=== PATIENT | male | born 1940 | race Caucasian/White ===

== ENCOUNTER 2018-09-05 16:41 | Observation (INO) | payer OTHER ==
--- NOTE | 2018-09-05 16:51 | EDPHY ---
H & P Stated Complaint: This morning was forgetful, no other s/s, denies confusion now. Time Seen by Provider: 09/05/18 16:51 HPI/ROS: HPI CHIEF COMPLAINT: Episode of forgetfulness and trouble with memory. HISTORY OF PRESENT ILLNESS: 77-year-old male, presents emergency room by private vehicle with his , history of hypertension, presents for a period of forgetfulness and confusion that last approximately 2 hr today. He made an appointment with his primary care doctor earlier in the day for some left abdominal groin discomfort. However his reports that the appointment was around 2:00 pm. And when she arrived home he had no recollection that he made this appointment and was unsure of the primary care doctor he was supposed to see despite being very familiar with him. He appeared confused. Trouble with his memory. This is since resolved. He now arrives to the emergency room in no acute distress resting comfortably. The patient denies any focal weakness numbness or tingling, denies headache, denies chest pain or shortness of breath , denies change in medications. No recent illness. Normal activity today. The at bedside reports that he is back to baseline. Had a 2 hr episode of confusion and forgetfulness. No other symptoms. Past Medical History: Denies significant medical history except for hypertension Past Surgical History: No recent surgical history Social History: The retired professor. Denies drugs alcohol tobacco. Family History: Noncontributory ROS REVIEW OF SYSTEMS: 10 Systems were reviewed and negative with the exception of the elements mentioned in the history of present illness. Exam Constitutional nontoxic appears well, triage nursing summary reviewed, vital signs reviewed, awake/alert. Eyes normal conjunctivae and sclera, EOMI, PERRLA. HENT normal inspection, atraumatic, moist mucus membranes, no epistaxis, neck supple/ no meningismus, no raccoon eyes. Respiratory clear to auscultation bilaterally, normal breath sounds, no respiratory distress, no wheezing. Cardiovascular rate normal, regular rhythm, no murmur, no edema, distal pulses normal. Gastrointestinal soft, non-tender, no rebound, no guarding, normal bowel sounds, no distension, no pulsatile mass. Genitourinary no CVA tenderness. Musculoskeletal no midline vertebral tenderness, full range of motion, no calf swelling, no tenderness of extremities, no meningismus, good pulses, neurovascularly intact. Skin pink, warm, & dry, no rash, skin atraumatic. Neurologic no focal neuro deficit on exam, and alert and oriented, awake, alert and oriented x 3, AAOx3, moves all 4 extremities equally, motor intact, sensory intact, CN II-XII intact, normal cerebellar, normal vision, normal speech. Psychiatric normal mood/affect. Heme/Lymph/Immune no lymphadenopathy. 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 Re-evaluate. Re-evaluation: MRI brain without contrast negative for bleed or stroke. Global atrophy noted. 1922: I did go and discuss the results the patient is resting comfortably. Neurological exam is unremarkable. at bedside agrees at his baseline. Discussed this case in detail with Dr. Marks, recommends obs overnight, U/S Carotids. Discussed the case with Dr. Arreola, who agrees to admit. Updated , and patient. Agrees to be admitted overnight. Source: Patient - Personal History Current Tetanus/Diphtheria Vaccine: Unsure - Medical/Surgical History Hx Asthma: No Hx Chronic Respiratory Disease: No Hx Diabetes: No Hx Cardiac Disease: No Hx Renal Disease: No Hx Cirrhosis: No Hx Alcoholism: No Hx HIV/AIDS: No Hx Splenectomy or Spleen Trauma: No Other PMH: HTN, - Social History Smoking Status: Never smoked Constitutional: Initial Vital Signs Temperature (C) 36.8 C 09/05/18 16:44 Heart Rate 86 09/05/18 16:44 Respiratory Rate 16 09/05/18 16:44 Blood Pressure 164/103 H 09/05/18 16:44 O2 Sat (%) 97 09/05/18 16:44 O2 Delivery Mode Room Air Allergies/Adverse Reactions: No Known Allergies Allergy (Unverified 09/05/18 16:44) Home Medications: Medication Instructions Recorded Lisinopril [Zestril 20 mg (*)] 20 mg PO DAILY 09/05/18 Aspirin [Aspirin 81mg (*)] 81 mg PO DAILY #30 tab.chew 09/06/18 Medical Decision Making - Data Points Laboratory Results: Laboratory Results 09/05/18 17:10 09/05/18 17:10 Medications Given: Discontinued Medications Aspirin (Aspirin) 81 mg PO DAILY [facility] Stop: 03/05/19 08:59 Last Admin: 09/06/18 09:29 Dose: 81 mg Lisinopril (Zestril) 20 mg PO DAILY [facility] Stop: 03/05/19 08:59 Last Admin: 09/06/18 09:30 Dose: 20 mg Departure - Departure Disposition: [facility] Inpatient Acute Clinical Impression: TIA (transient ischemic attack) Condition: Fair
[2018-09-05 17:41] LABS: PLATELET COUNT 205 10^3/uL (150-400)
[2018-09-05] MEDS ORDERED: ONDANSETRON 4 MG/2 ML VIAL IVP PRN (21:27)
[2018-09-05] MEDS ORDERED: ONDANSETRON DISINTEGRATING 4 MG TAB PO PRN (21:27)
[2018-09-05] MEDS ORDERED: oxyCODONE IR 5 MG TAB PO PRN (21:27)
[2018-09-05] MEDS ORDERED: HYDROCODONE/APAP 5/325 TAB PO PRN (21:27)
[2018-09-05] MEDS ORDERED: ACETAMINOPHEN 325 MG TAB PO PRN (21:27)
[2018-09-05] MEDS ORDERED: IOPAMIDOL (ISOVUE 370) 100 ML BTL IV ONE (21:45)
--- NOTE | 2018-09-05 21:47 | PDGENHP ---
History and Physical - Chief Complaint confusion - History of Present Illness Patient is a 77 year old M with PMH of prostate cancer in 2000 presenting with a brief episode of confusion characterized by memory loss. Patient himself does not recall the episode but per 's report to ER doctor, patient had made an appointment to see his PCP today and when she got home he had failed to go, did not remember making the appointment and did not even remember his doctors name. He has never had similar issues in the past. The episode did not recur but he still has difficulty recalling what happened during that time period. He denies other associated sxs such as visual changes, weakness, numbness, fever, sob, chest pain. He states he currently feels completely normal though he is a bit worried about the event. History Information - Allergies/Home Medication List Allergies/Adverse Reactions: No Known Allergies Allergy (Unverified 09/05/18 16:44) Home Medications: Lisinopril [Zestril 20 mg (*)] 20 mg PO DAILY 09/05/18 [Last Taken 09/05/18] I have personally reviewed and updated: family history, medical history, social history, surgical history - Past Medical History cancer (prostate--treated with radiation in 2000), hypertension - Surgical History Reports: no pertinent surgical hx - Family History Positive for: non-pertinent - Social History Smoking Status: Never smoked Alcohol Use: Rarely Drug Use: None Additional social history: , very active--walks dog for up to 5 hours per day, works out in gym Review of Systems Review of Systems: ROS: 10pt was reviewed & negative except for what was stated in HPI & below Physical Exam Physical Exam: Temp Pulse Resp BP Pulse Ox 36.7 C 69 16 177/95 H 94 09/05/18 20:30 09/05/18 20:30 09/05/18 20:30 09/05/18 20:30 09/05/18 20:30 Constitutional: no apparent distress, appears nourished Eyes: PERRL, anicteric sclera Ears, Nose, Mouth, Throat: moist mucous membranes, hearing normal Cardiovascular: regular rate and rhythym, no murmur, rub, or gallop, No edema Respiratory: no respiratory distress, no rales or rhonchi, clear to auscultation Gastrointestinal: normoactive bowel sounds, soft, non-tender abdomen Genitourinary: no bladder tenderness Skin: warm, normal color Musculoskeletal: full muscle strength, no muscle tenderness Neurologic: AAOx3, CN II-XII Intact Psychiatric: interacting appropriately, not anxious, not encephalopathic Lab Data & Imaging Review 09/05/18 17:10 09/05/18 17:10 WBC 4.10 10^3/uL (3.80-9.50) 09/05/18 17:10 RBC 4.50 10^6/uL (4.40-6.38) 09/05/18 17:10 Hgb 14.1 g/dL (13.7-17.5) 09/05/18 17:10 Hct 41.8 % (40.0-51.0) 09/05/18 17:10 MCV 92.9 fL (81.5-99.8) 09/05/18 17:10 MCH 31.3 pg (27.9-34.1) 09/05/18 17:10 MCHC 33.7 g/dL (32.4-36.7) 09/05/18 17:10 RDW 12.5 % (11.5-15.2) 09/05/18 17:10 Plt Count 205 10^3/uL (150-400) 09/05/18 17:10 MPV 9.2 fL (8.7-11.7) 09/05/18 17:10 Neut % (Auto) 59.7 % (39.3-74.2) 09/05/18 17:10 Lymph % (Auto) 27.6 % (15.0-45.0) 09/05/18 17:10 [place] % (Auto) 11.2 % (4.5-13.0) 09/05/18 17:10 Eos % (Auto) 0.5 % (0.6-7.6) L 09/05/18 17:10 Baso % (Auto) 1.0 % (0.3-1.7) 09/05/18 17:10 Nucleat RBC Rel Count 0.0 % (0.0-0.2) 09/05/18 17:10 Absolute Neuts (auto) 2.45 10^3/uL (1.70-6.50) 09/05/18 17:10 Absolute Lymphs (auto) 1.13 10^3/uL (1.00-3.00) 09/05/18 17:10 Absolute Monos (auto) 0.46 10^3/uL (0.30-0.80) 09/05/18 17:10 Absolute Eos (auto) 0.02 10^3/uL (0.03-0.40) L 09/05/18 17:10 Absolute Basos (auto) 0.04 10^3/uL (0.02-0.10) 09/05/18 17:10 Absolute Nucleated RBC 0.00 10^3/uL (0-0.01) 09/05/18 17:10 Immature Gran % 0.0 % (0.0-1.1) 09/05/18 17:10 Immature Gran # 0.00 10^3/uL (0.00-0.10) 09/05/18 17:10 Sodium 139 mEq/L (135-145) 09/05/18 17:10 Potassium 4.2 mEq/L (3.3-5.0) 09/05/18 17:10 Chloride 103 mEq/L (97-110) 09/05/18 17:10 Carbon Dioxide 27 mEq/l (22-31) 09/05/18 17:10 Anion Gap 9 mEq/L (6-14) 09/05/18 17:10 BUN 22 mg/dL (7-23) 09/05/18 17:10 Creatinine 1.0 mg/dL (0.7-1.3) 09/05/18 17:10 Estimated GFR > 60 09/05/18 17:10 Glucose 111 mg/dL (70-100) H 09/05/18 17:10 Calcium 9.1 mg/dL (8.5-10.4) 09/05/18 17:10 Urine Color YELLOW 09/05/18 16:55 Urine Appearance HAZY 09/05/18 16:55 Urine pH 7.0 (5.0-7.5) 09/05/18 16:55 Ur Specific Orange 1.024 (1.002-1.030) 09/05/18 16:55 Urine Protein NEGATIVE (NEGATIVE) 09/05/18 16:55 Urine Ketones NEGATIVE (NEGATIVE) 09/05/18 16:55 Urine Blood NEGATIVE (NEGATIVE) 09/05/18 16:55 Urine Nitrate NEGATIVE (NEGATIVE) 09/05/18 16:55 Urine Bilirubin NEGATIVE (NEGATIVE) 09/05/18 16:55 Urine Urobilinogen 2.0 EU (0.2-1.0) H 09/05/18 16:55 Ur Leukocyte Esterase NEGATIVE (NEGATIVE) 09/05/18 16:55 Urine Glucose NEGATIVE (NEGATIVE) 09/05/18 16:55 Visualized and Interpreted imaging results: Yes Interpretation: Brain MRI: no cva or mass Assessment & Plan Assessment: TIA (transient ischemic attack) (Acute) 77 yo M with remote hx of prostate cancer presenting with transient memory issues # TIA versus transient global amnesia: sxs have now completely resolved though recollection of the event still absent. Brain MRI negative. Neurology consulted by ER doc and recommended overnight observation and further imaging of head/ neck. CTA head/neck ordered, echo in am. Started on asa. Neuro to evaluate in am. Lipid panel and A1c for further risk stratification. # hypertension: currently elevated, will continue home lisinopril with addition of prn hydralazine # hyperglycemia: A1c ordered as above # observation status Patient new to my care. Old records reviewed and summarized as above. Care plan reviewed with ER doctor as above.
[2018-09-05] MEDS ORDERED: hydrALAZINE 20 MG/ML VIAL IVP PRN (21:51)
[2018-09-06] MEDS ORDERED: LISINOPRIL 20 MG TAB PO SCH (09:00)
[2018-09-06] MEDS ORDERED: ASPIRIN 81 MG CHEWABLE TAB PO SCH (09:00)
[2018-09-06 09:21] VITALS: BP 159/81
--- NOTE | 2018-09-06 10:30 | ECHO ---
[email or web address] [address] [address] Main: [phone] Fax: Transthoracic Echocardiogram Name: ELISEO UNDERWOOD MR#: [id number] Study Date: 09/06/2018 Study Time: 08:05 AM Date of : 1940 Age: 77 year(s) Height: 180.3 cm (71 in.) Weight: 44 kg (97 lb.) BSA: 1.55 m2 Gender: Male Examination: Echo Indication: tia Image Quality: Adequate Contrast: Requested by: Farzaneh Arreola BP: 148 mmHg/82 mmHg Heart Rate: Rhythm: Indication: tia Procedure Staff Singeing Torch Operator: Philly Pham [facility] Reading Physician: Jose Juan Mtz MD Requesting Provider: Conclusions: Normal size left ventricle. The ejection fraction is visually estimated to be 60 %. No regional wall motion abnormality. Normal RV function. The left atrium is normal in size. The mitral valve is normal in appearance and function. Moderate mitral valve regurgitation is present. No mitral stenosis is present. The aortic valve is tri-leaflet. No aortic valve stenosis is present. The tricuspid valve is normal in appearance and function. Mild tricuspid regurgitation is present. There is no previous echocardiogram for comparison. No obvious source of embolism seen. Measurements: Chambers Valvular Assessment AV/MV Valvular Assessment TV/PV Normal Normal Normal Name Value Range Name Value Range Name Value Range Ao Laura (2D): 2.9 cm (1.4 cm-2.6 AV Vmax: 1.22 m/s (1 m/s-1.7 PV Vmax: 1.06 m/s (0.6 m/s-0.9 cm) m/s) m/s) IVSd (2D): 1.1 cm (0.6 cm-1.1 AV maxP mmHg ( - ) PV PGmax: 4 mmHg ( - ) cm) AV meanP mmHg ( - ) LVDd (2D): 4.2 cm (4.2 cm-5.9 ALEXUS (VTI): 3.3 cm ( - ) cm) MV E Vmax: 0.62 m/s ( - ) LVDs (2D): 2.6 cm (2.1 cm-4 MV A Vmax: 0.67 m/s ( - ) cm) MV E/A: 0.93 ( - ) LVPWd (2D): 1.1 cm (0.6 cm-1 cm) MV PHT: 0.076 s ( - ) LVOTd 2.2 cm 2.2 cm mm MVA (PHT): 2.9 s ( - ) Patient: ELISEO UNDERWOOD Study Date: 09/06/2018 Page 1 of 2 08:05 AM LVEF (BP): 61 % (>=55 %) Visual EF: 60 % RVDd(2D): 3.8 cm (1.9 cm-3.8 cmmm) Continued Measurements: Chambers Valvular Assessment AV/MV Name Value Name Value LADs: 3.3 cm MV DecTime: 229 m/s LADs Lon.1 cm MV E' Septal: 0.07 m/s LA Area: 18.2 cm2 MV E/E' Septal: 8.70 LA Volume: 41 ml MV E/E' Lateral: 6.40 LA Volume Index: 26.5 ml/m2 Additional Vessels Name Value Ao Ascendin.1 cm Inferior Vena Cava: 1.5 cm Findings: Left Ventricle: Normal size left ventricle. No LV hypertrophy. Normal global systolic LV function. The ejection fraction is visually estimated to be 60 %. No regional wall motion abnormality. Normal diastolic LV function. Right Ventricle: Normal size right ventricle. Normal RV function. Left Atrium: The left atrium is normal in size. Right Atrium: The right atrium is normal in size. Mitral Valve: The mitral valve is normal in appearance and function. Moderate mitral valve regurgitation is present. No mitral stenosis is present. Possible trivial mitral valve prolapse. Aortic Valve: The aortic valve is tri-leaflet. Aortic sclerosis is present. Trivial aortic valve regurgitation. No aortic valve stenosis is present. Tricuspid Valve: The tricuspid valve is normal in appearance and function. Mild tricuspid regurgitation is present. Pulmonic Valve: The pulmonic valve is normal in appearance and function. Mild pulmonic valve regurgitation is noted. Aorta: The aorta is normal. Normal size aortic root measuring 2.9 cm. Normal size ascending aorta measuring 3.1 cm. IVC: The IVC is normal sized. Pericardium: No pericardial effusion. No pleural effusion. (No Signature Object) Patient: ELISEO UNDERWOOD Study Date: 09/06/2018 Page 2 of 2 08:05 AM [id number]
--- NOTE | 2018-09-06 11:28 | NEUROPROG ---
Assessment: HOSPITAL NEUROLOGY CONSULT REQUESTING: Trent Arreola MD REASON: amnesia HPI: 77 year old man with a history of HTN who presented to the ED yesterday due to a spell of amnesia. He was going about his usual routine yesterday and walked his son's dog, then went to the gym, then walked his own dog. He had made an appointment with his PCP for some left groin pain. He has no recollection of events after that. His came home and asked about his medical appointment, but he told her he didn't make one (fully knowing he did). He couldn't recall the name of his PCP , with whom he is very familiar. His took him to his PCP's office and he was asking why he was there, and if they had ever been to the office before. He was not markedly hypertensive during his PCP visit. He saw Dr. Herrera who sent him to the ED. Symptoms started to resolve, lasting several hours. He returned to baseline just prior to ED arrival. He has no recollection of this event. No prior history of stroke/TIA. He had not other notable symptoms including focal weakness, sensory changes, vision changes, speech/language changes, gait change, MCCRAY, adventitious movements, LOC. ROS: As per the HPI, otherwise a complete 12 point ROS was performed and is negative ALLERGIES AND MEDS: As recorded in the EMR - reviewed and reconciled PFSH: As per the intake H&P by Dr. Arreola from yesterday EXAM: VS reviewed in EMR GEN: WDWN laying in NAD HEENT: NCAT, sclera anicteric, conjunctiva not injected, MMM, oropharynx clear, no scalp tenderness NECK: supple, nontender, no meningismus CV: RRR s1 s2 wo m/r/c/g. Carotid pulses 2+ wo bruit NEURO: MS: awake, alert, oriented to all spheres. Speech nondysarthric. No language disturbance. Follows commands. Attends to both sides. Recent/remote memory grossly intact. Mood euthymic. Good fund of knowledge. CN: pupils 3mm round and reactive. Fundi with sharp discs. VFF. Primary gaze centered. Full ocular motility. Facial sensation preserved. Face symmetric. Hearing grossly intact to finger rub. Palatoglossal movements intact. Shoulder shrug and head turn strong. MOTOR: normal bulk/tone. No adventitial movements. Full power throughout. SENSORY: intact to all modalities throughout. No extinction. COORD: no ataxia FN/HS. Cheryle preserved. REFLEX: plantars down. No clonus. DTRS 2/4. GAIT: deferred to PT safety eval DATA REVIEW: Labs reviewed in EMR PERSONALLY INTERPRETED RESULTS AND DATA: MRI brain wo - nothing acute, some global volume loss and mild chronic microvascular ischemic changes in the white matter appropriate for age. CTA head/neck - no hemodynamically significant lesions TTE - preserved EF, no mass IMPRESSION AND RECOMMENDATIONS: // PROBABLE TGA Patient with transient episode of amnesia and no recollection of this event. Event did include repeated questions. No other deficits noted. Likely transient global amnesia. Do no suspect a vascular event or seizure or other sinister neurologic process. He is going to continue on ASA 81mg daily going forward. Continue with goal normotension, normoglycemia. Stroke education provided. He will follow up with his PCP. Sign off. Objective: Vital Signs Temp Pulse Resp BP Pulse Ox 36.4 C 69 16 159/81 H 97 09/06/18 08:00 09/06/18 08:00 09/06/18 08:00 09/06/18 09:30 09/06/18 08:00 09/05/18 09/06/18 09/07/18 05:59 05:59 05:59 Intake Total 400 Balance 400 Allergies/Adverse Reactions: No Known Allergies Allergy (Unverified 09/05/18 16:44)
--- NOTE | 2018-09-06 11:35 | ASMTCMCOM ---
CM Note CM Note Notes: Met with patient re: d/c plan of care. Patient seems to be doing very well today. He declines any CM needs at this time. Patient will d/c home with support of . HEALTH CARE ASSISTANT has cleared patient. CM available for changes. Plan: Independent Date Signed: 09/06/2018 11:34 AM Electronically Signed By:Tatiana Reeves RN
--- NOTE | 2018-09-06 11:57 | PDDCSUM ---
Discharge Summary Discharge Summary: Date of Admission: 09/05/2018 Date of Discharge: 09/06/2018 Consults: Neurology Procedures: CTA Head/Neck, Brain MRI Followup: PCP Hospital Course Problem List: 77 yo M with remote hx of prostate cancer presenting with transient memory issues # Transient global amnesia: sxs have now completely resolved though recollection of the event still absent. Brain MRI negative. Neurology consulted who believe this to be transient global amnesia . CTA head/neck negative. Started on asa, will continue as outpatient. TTE performed which showed normal EF. Lipid panel and A1c within normal limits. # hypertension: currently elevated, will continue home lisinopril # hyperglycemia: A1c 5.6 as above Time spent on discharge was >35 minutes with >50% of time spent on patient education and counseling.
--- NOTE | 2018-09-06 12:28 | ASMTLACE ---
LACE Length of stay for Answers: 1 day current admission Acuity / Level of Answers: No Care: Did the patient have an inpatient admission? Comorbidities - select Answers: Other Notes: HTN; Hx of prostate all that apply cancer # of Emergency department Answers: 1-2 visits in the last 6 months Score: 3 Date Signed: 09/06/2018 12:27 PM Electronically Signed By:Tatiana Reeves RN
== END 2018-09-06 12:46 | disposition home or self-care (01) ==
LOC: F3N 21:35
PROVIDERS: ADMIT Internal Medicine; ATTEND Internal Medicine
DX: G45.4 Transient global amnesia (principal); Z85.46 Personal history of malignant neoplasm of prostate; I10 Essential (primary) hypertension; R73.9 Hyperglycemia, unspecified
CPT/HCPCS: 70496; 70498; 70551; 92523; 93306; 99285; G0378; Q9967

== ENCOUNTER → 2019-01-23 | Outpatient (CLI) | payer OTHER | LOC: FIMAGING 07:28 | PROVIDERS: ATTEND Internal Medicine | DX: R10.32 Left lower quadrant pain (principal) ==